=== PATIENT | female | born 1965 | race Native Hawaiian/Other Pacific Islander ===

== ENCOUNTER 2018-10-22 06:31 | Day surgery (SDC) | payer BC ==
[2018-10-22] MEDS ORDERED: Propofol 10 mg/ml Inj (20 ML) ONE (08:12)
[2018-10-22] MEDS ORDERED: Sodium Chloride 0.9% 1,000 ML IV SCH (08:45)
[2018-10-22] MEDS ORDERED: HYDROmorphone 1 mg/ml ISec ONE (08:51)
[2018-10-22 09:14] VITALS: O2SAT 98
[2018-10-22 10:14] VITALS: BP 104/64; PULSE 67; RESP 16; TEMP 97.7
== END 2018-10-22 10:35 | disposition home or self-care (01) ==
LOC: ENDO 06:31
PROVIDERS: ATTEND Specialist
DX: Z12.11 Encounter for screening for malignant neoplasm of colon (principal); D12.2 Benign neoplasm of ascending colon; K64.8 Other hemorrhoids
CPT/HCPCS: 45380; 88305; J1170; J2001; J2704; J7030